=== PATIENT | female | born 1930 | race Caucasian/White ===

== ENCOUNTER 2019-12-12 13:01 | Day surgery (SDC) | payer MEDICARE ==
[~2019-12-12] VITALS: Ht 154.9 cm; Wt 67.8 kg
[~2019-12-12 13:01] MED LIST: normal saline 1000ml 1,000 ML IV SCH
[2019-12-12 13:18] VITALS: BP 166/68
[2019-12-12 13:50] LABS: BASOPHILS # (AUTO) 0.1 X10'3 (0-0.2); BASOPHILS % (AUTO) 0.6 % (0-1); EOSINOPHILS # (AUTO) 0.1 X10'3 (0-0.9); EOSINOPHILS % (AUTO) 1.5 % (0-6); HEMATOCRIT 41.7 % (35.0-45.0); HEMOGLOBIN 13.5 g/dl (12.0-16.0); LYMPHOCYTES # (AUTO) 1.7 X10'3 (1.1-4.8); LYMPHOCYTES % (AUTO) 18.5 % (21-51); MEAN CORPUSCULAR HEMOGLOBIN 29.9 PG (27.0-31.0); MEAN CORPUSCULAR HGB CONC 32.3 g/dL (33.0-36.5); MEAN CORPUSCULAR VOLUME 92.7 FL (78-98); MEAN PLATELET VOLUME 11.4 FL (7.4-10.4); MONOCYTES # (AUTO) 0.8 X10'3 (0-0.9); MONOCYTES % (AUTO) 8.7 % (2-12); NEUTROPHILS # (AUTO) 6.6 X10'3 (1.8-7.7); NEUTROPHILS % (AUTO) 70.7 % (42-75); PLATELET COUNT 209 X10'3 (140-440); RED CELL DISTRIBUTION WIDTH 14.8 % (11.5-14.5); WHITE BLOOD COUNT 9.3 X10'3 (4.5-11.0)
[2019-12-12 14:00] LABS: ALBUMIN 3.8 G/DL (3.4-5.0); ANION GAP 10 (8-16); BLOOD UREA NITROGEN 29 MG/DL (7-18); BUN/CREATININE RATIO 16.9 (6.6-38.0); CALCIUM 9.2 MG/DL (8.5-10.1); CHLORIDE 110 MMOL/L (99-107); CREATININE 1.72 MG/DL (0.40-0.90); GLUCOSE 93 MG/DL (70-104); POTASSIUM 4.4 MMOL/L (3.5-5.1); SODIUM 143 MMOL/L (135-145); TOTAL CARBON DIOXIDE 22.9 MMOL/L (24-32); eGFR 28 ML/MIN
[2019-12-12] MEDS ORDERED: LIDOcaine 1% W/epiNEPHrine 1:100,000 20ml vial ONE (15:13)
[2019-12-12] MEDS ORDERED: vancomycin 1,000mg inj ONE (15:13)
[2019-12-12] MEDS ORDERED: fentaNYL/PF 50MCG/1 ML 2ML syringe ONE ×2 (15:13→15:59)
[2019-12-12] MEDS ORDERED: midazolam 2 mg/2 ml injection ONE ×2 (15:13→15:59)
[2019-12-12] MEDS ORDERED: ceFAZolin 1000mg inj ONE (15:13)
[2019-12-12] MEDS ORDERED: ASPI81TA52 PO (15:32)
[2019-12-12] MEDS ORDERED: GABA-532 PO (15:32)
[2019-12-12] MEDS ORDERED: ATOR20TA PO (15:32)
[2019-12-12] MEDS ORDERED: AMLO-93 PO (15:32)
[2019-12-12] MEDS ORDERED: LISI-600 PO ×2 (15:32→15:33)
[2019-12-12 16:48] VITALS: BP 115/40
[2019-12-12] MEDS ORDERED: normal saline 1000ml 1,000 ML IV SCH (17:00)
[2019-12-12 17:01] VITALS: BP 139/43
[2019-12-12 17:16] VITALS: BP 129/47
[2019-12-12 17:30] VITALS: BP 112/40
[2019-12-12 17:45] VITALS: BP 115/40
== END 2019-12-12 18:05 | disposition home or self-care (01) ==
LOC: MED 3N 13:01 → CATH LAB 13:01 → MED 3N 13:02 → UNDOFXSDCSVC 13:56 → MED 3N 15:02 → CATH LAB 18:05
PROVIDERS: ATTEND Internal Medicine Cardiovascular Disease
DX: R42 Dizziness and giddiness (principal); I49.5 Sick sinus syndrome; I48.20 Chronic atrial fibrillation, unspecified; I12.9 Hypertensive chronic kidney disease with stage 1 through stage 4 chronic kidney disease, or unspecified chronic kidney disease; N18.9 Chronic kidney disease, unspecified; M81.0 Age-related osteoporosis without current pathological fracture; Z86.73 Personal history of transient ischemic attack (TIA), and cerebral infarction without residual deficits; Z96.659 Presence of unspecified artificial knee joint; Z79.899 Other long term (current) drug therapy; Z79.82 Long term (current) use of aspirin; Z88.5 Allergy status to narcotic agent
CPT/HCPCS: 33207; 71045; 80048; 85025; 85610; 93005; 99152; 99153; C1786; C1894; C1898; J0690; J2250; J3010; J3370; J7050; 33206; A4565; A4620; GO378